=== PATIENT | male | born 1965 | race Asian ===

== ENCOUNTER 2016-12-24 10:44 | Emergency (ER) | payer OTHER ==
[~2016-12-24] VITALS: Ht 167.6 cm; Wt 70.7 kg
[2016-12-24 10:50] VITALS: TEMP 36.5; Ht 167.6 cm; Wt 70.7 kg
[2016-12-24 10:55] VITALS: O2SAT 97
[2016-12-24 11:13] LABS: BASO % 0.6 %; BASO ABS # 0.05 K/uL (0-0.2); COMPLETE YES; EOS % 2.4 %; HEMATOCRIT 47.2 % (42-52); IG% 0.4 %; LYMPH % 31.1 %; LYMPH ABS # 2.49 K/uL (1.2-3.4); MEAN CELL VOLUME 90.9 fL (80-100); MEAN CORPUSCULAR HEMOGLOBIN 29.7 pg (25-34); MEAN CORPUSCULAR HGB CONC 32.6 g/dl (32-36); MEAN PLATELET VOLUME 10.3 fL (7.4-10.4); MONO % 8.9 %; NEUT % 56.6 %; PLATELET COUNT 267 K/uL (130-400); RED BLOOD COUNT 5.19 M/uL (4.7-6.1)
--- NOTE | 2016-12-24 11:27 | DIAGNOSTIC IMAGING REPORT ---
CHEST ONE VIEW PORTABLE CLINICAL HISTORY: CHEST PAIN dyspnea COMPARISON STUDY: No previous studies for comparison. FINDINGS: Lungs are clear. Diaphragms smooth. Apical pleural thickening on the right and to lesser extent left. This may be chronic. IMPRESSION: 1. No acute process the chest. 2. Apical pleural thickening, possibly associated with minimal pleural nodularity right apex. Correlation with old films is initially suggested. If this is not possible, a repeat study is recommended in 4-6 months. Electronically signed by: Bernard Jefferson M.D. 12/24/2016 11:26 AM Dictated Date/Time: 12/24/2016 11:25 AM
[2016-12-24 11:31] LABS: BUN/CREATININE RATIO 12.4 (10-20); CALCIUM 8.8 mg/dl (8.5-10.1); CREATININE 0.89 mg/dl (0.60-1.40); POTASSIUM 4.3 mmol/L (3.5-5.1)
[2016-12-24 11:36] LABS: CKMB/CK RATIO 0.7 (0-3.0)
[2016-12-24] MEDS ORDERED: ASPIRIN 81 MG CHEW PO STA (12:21)
[2016-12-24] MEDS ORDERED: GI COCKTAIL PO STA (12:21)
[2016-12-24] MEDS ORDERED: ALUMINUM/MAGNESIUM SUSP 30 ML UDC ONE (12:51)
[2016-12-24] MEDS ORDERED: LIDOCAINE HCL 2% VISC SOLN 20 ML UDC ONE (12:52)
[2016-12-24 16:51] VITALS: BP 130/84; PULSE 65; O2SAT 99
[2016-12-24] MEDS ORDERED: OMEP40CA41 PO (17:39)
--- NOTE | 2016-12-24 18:04 | EXERCISE STRESS ECHO ---
*NOTICE TO RECEIVING CONSTITUTION PARTY AGENCY This information is strictly Confidential and protected under [place] law. [place] law prohibits you from making any further disclosure of this information unless further disclosure is expressly permitted by the written consent of the person to whom it pertains or is authorized by law. A general authorization for the release of medical or other information is not sufficient for this purpose. Hospital accepts no responsibility if the information is made available to any other person, INCLUDING THE PATIENT. Interpretation Summary * Name: JUAN CARLOS JORGE Study Date: 12/24/2016 02:33 PM BP: 143/82 mmHg * Patient Location: [facility] HR: 49 * : 1965 (M/d/yyyy) Gender: Male Height: 66 in * Age: 51 yrs Ethnicity: Weight: 155 lb * Ordering Physician: Roe Molina * Referring Physician: Self, Referred * Performed By: Lilliam Correa RCS * * Reason For Study: CHEST PAIN * BSA: 1.8 m2 * -- Conclusions -- * 1. Negative exercise stress echo for ischemia at 93% MPHR. * 2. Exercise ECG with 0.[address] depressions in inferior leads. * 3. Below average functional capacity (first time on a treadmill was challenging for patient). Exercised 3:11, achieving 4.8 METS. * 4. No exercise induced chest pain. Normal hemodynamic response to exercise. Procedure Details * ECHOEX, CPT #38396 Left Ventricular Findings with Stress * This was essentially a normal study. Left Ventricle * The left ventricle is grossly normal size. * There is normal left ventricular wall thickness. * Ejection Fraction = 55-60%. * No regional wall motion abnormalities noted. Right Ventricle * The right ventricle is grossly normal size. * The right ventricular systolic function is qualitatively normal. Mitral Valve * The mitral valve is grossly normal. * Mitral stenosis is absent. Tricuspid Valve * The tricuspid valve is not well visualized. Aortic Valve * The aortic valve opens well. * No hemodynamically significant valvular aortic stenosis. Pulmonic Valve * The pulmonic valve is not well visualized. Great Vessels * The aortic root is normal size. Pericardium * There is no pericardial effusion. Stress Parameters * Sinus bradycardia * There was a maximum .[address] segment depression in the inferior lead(s). * The stress portion of this study was personally supervised by the undersigned interpreting physician. * Rest heart rate was '49' BPM. * Rest blood pressure was '143/82' * Maximum heart rate achieved was 157 bpm. * Maximum heart rate was 93 % of maximum age-predicted heart rate. * Maximum blood pressure was '172/57' * Total exercise time was '03:11' * Maximum exercise MET level achieved was '4.80' METS * Maximum treadmill speed was '2.50' miles per hour. * Maximum treadmill elevation was '12.00'% grade. Left Ventricular Findings with Stress * The study was technically good with many images being of high quality. MMode 2D Measurements and Calculations IVSd 1.2 cm IVSs 1.5 cm LVIDd 4.0 cm LVIDs 2.9 cm LVPWd 0.98 cm LVPWs 1.3 cm IVS/LVPW 1.2 FS 27.7 % EDV(Teich) 69.3 ml ESV(Teich) 31.7 ml EF(Teich) 54.3 % EDV(cubed) 63.2 ml ESV(cubed) 23.9 ml EF(cubed) 62.2 % % IVS thick 26.2 % % LVPW thick 30.4 % LV mass(C)d 138.4 grams LV mass(C)dI 77.1 grams/m\S\2 LV mass(C)s 127.9 grams LV mass(C)sI 71.2 grams/m\S\2 SV(Teich) 37.6 ml SI(Teich) 21.0 ml/m\S\2 SV(cubed) 39.3 ml SI(cubed) 21.9 ml/m\S\2 Ao root diam 3.8 cm Ao root area 11.2 cm\S\2 LA dimension 2.8 cm LA/Ao 0.74 LVOT diam 2.0 cm LVOT area 3.1 cm\S\2
--- NOTE | 2016-12-24 18:57 | EMERGENCY ROOM VISIT NOTE ---
History Report prepared by Elzbieta: Fawad Freitas Under the Supervision of: Dr. Roe Mloina M.D. First contact with patient: 11:05 Chief Complaint: CHEST PAIN Stated Complaint: CHEST PAIN Nursing Triage Summary: Pt presents with pain "in heart" and back, difficulty breathing since Mon. History of Present Illness The patient is a 51 year old male who presents to the Emergency Room with complaints of constant chest pain that the patient first experienced three days ago. The patient claims that his pain also radiates into his left black. He describes the pain as being "deep inside" his left chest, and notes that it is worsened with deep inspiration. He rates the pain in his left back as an 8/10 in severity, and his pain with deep inspiration in his left chest as an 8/10 as well. The patient is a smoker and has high cholesterol. He denies any recent cough, long travel, shortness of breath, or family history of cardiac illness. He does not take any medications daily. He also denies LOC, headache, fevers, chills, diaphoresis, visual changes, neck pain, personal history or family history of aneurysm or pulmonary embolism, uncontrolled hypertension, leg swelling, coagulation abnormalities, recent surgery or immobilization, nausea, vomiting, abdominal pain, melena, hematochezia, urinary symptoms, numbness, weakness, lymphadenopathy, rash, or other complaints. Source of History: patient Onset: 3 days VIDEO GAME TESTER Position: chest (left) Timing: constant Modifying Factors (Worsening): other (Deep inspiration) Associated Symptoms: + back pain (Left upper back), No SOB, No cough Review of Systems See HPI for pertinent positives and negatives. A total of ten systems were reviewed and were otherwise negative. Past Medical & Surgical Medical Problems: (1) High cholesterol High cholesterol Family History No pertinent family histories discussed. Social History Smoking Status: Current Every Day Smoker Marital Status: Housing Status: lives with family Occupation Status: employed Current/Historical Medications Scheduled Omeprazole (Prilosec), 40 MG PO DAILY Allergies Coded Allergies: No Known Allergies (Unverified , 12/24/16) Physical Exam Vital Signs Date Time Temp Pulse Resp B/P Pulse Ox O2 Delivery O2 Flow Rate FiO2 12/24/16 16:51 65 16 130/84 99 Room Air 12/24/16 15:10 86 16 120/83 96 Room Air 12/24/16 13:18 53 12/24/16 13:02 55 16 148/86 98 Room Air 12/24/16 12:06 58 16 129/92 99 Room Air 12/24/16 11:02 59 12/24/16 10:55 97 Room Air 12/24/16 10:50 36.5 63 18 157/82 99 Room Air Physical Exam GENERAL: Awake, alert, well-appearing, in no distress HENT: Normocephalic, atraumatic. Oropharynx unremarkable. EYES: Normal conjunctiva. Sclera non-icteric. NECK: Supple. No nuchal rigidity. FROM. No JVD. RESPIRATORY: Clear to auscultation. CARDIAC: Regular rate, normal rhythm. Extremities warm and well perfused. Pulses equal. ABDOMEN: Soft, non-distended. No tenderness to palpation. No rebound or guarding. No masses. RECTAL: Deferred. MUSCULOSKELETAL: Chest examination reveals no tenderness. The back is symmetrical on inspection without obvious abnormality. There is no CVA tenderness to palpation. No joint edema. LOWER EXTREMITIES: Calves are equal size bilaterally and non-tender. No edema. No discoloration. NEURO: Normal sensorium. No sensory or motor deficits noted. SKIN: No rash or jaundice noted. Medical Decision & Procedures ER Provider Diagnostic Interpretation: Radiology results as stated below per my review and radiologist interpretation: CHEST ONE VIEW PORTABLE CLINICAL HISTORY: CHEST PAIN dyspnea COMPARISON STUDY: No previous studies for comparison. FINDINGS: Lungs are clear. Diaphragms smooth. Apical pleural thickening on the right and to lesser extent left. This may be chronic. IMPRESSION: 1. No acute process the chest. 2. Apical pleural thickening, possibly associated with minimal pleural nodularity right apex. Correlation with old films is initially suggested. If this is not possible, a repeat study is recommended in 4-6 months. Electronically signed by: Bernard Jefferson M.D. 12/24/2016 11:26 AM Dictated Date/Time: 12/24/2016 11:25 AM Laboratory Results 12/24/16 11:05 Red Blood Count 5.19, Mean Corpuscular Volume 90.9, Mean Corpuscular Hemoglobin 29.7, Mean Corpuscular Hemoglobin Concent 32.6, Mean Platelet Volume 10.3, Neutrophils (%) (Auto) 56.6, Lymphocytes (%) (Auto) 31.1, Monocytes (%) (Auto) 8.9, Eosinophils (%) (Auto) 2.4, Basophils (%) (Auto) 0.6, Neutrophils # (Auto) 4.53, Lymphocytes # (Auto) 2.49, Monocytes # (Auto) 0.71, Eosinophils # (Auto) 0.19, Basophils # (Auto) 0.05 12/24/16 11:05 Test 12/24/16 11:05 12/24/16 11:18 White Blood Count 8.00 K/uL (4.8-10.8) Red Blood Count 5.19 M/uL (4.7-6.1) Hemoglobin 15.4 g/dL (14.0-18.0) Hematocrit 47.2 % (42-52) Mean Corpuscular Volume 90.9 fL (80-100) Mean Corpuscular Hemoglobin 29.7 pg (25-34) Mean Corpuscular Hemoglobin Concent 32.6 g/dl (32-36) Platelet Count 267 K/uL (130-400) Mean Platelet Volume 10.3 fL (7.4-10.4) Neutrophils (%) (Auto) 56.6 % Lymphocytes (%) (Auto) 31.1 % Monocytes (%) (Auto) 8.9 % Eosinophils (%) (Auto) 2.4 % Basophils (%) (Auto) 0.6 % Neutrophils # (Auto) 4.53 K/uL (1.4-6.5) Lymphocytes # (Auto) 2.49 K/uL (1.2-3.4) Monocytes # (Auto) 0.71 K/uL (0.11-0.59) Eosinophils # (Auto) 0.19 K/uL (0-0.5) Basophils # (Auto) 0.05 K/uL (0-0.2) RDW Standard Deviation 44.2 fL (36.4-46.3) RDW Coefficient of Variation 13.4 % (11.5-14.5) Immature Granulocyte % (Auto) 0.4 % Immature Granulocyte # (Auto) 0.03 K/uL (0.00-0.02) Anion Gap 4.0 mmol/L (3-11) Est Creatinine Clear Calc Drug Dose 87.6 ml/min Estimated GFR () 113.9 Estimated GFR (Non- 98.3 BUN/Creatinine Ratio 12.4 (10-20) Calcium Level 8.8 mg/dl (8.5-10.1) Total Bilirubin 0.4 mg/dl (0.2-1) Direct Bilirubin 0.1 mg/dl (0-0.2) Aspartate Amino Transf (AST/SGOT) 17 U/L (15-37) Alanine Aminotransferase (ALT/SGPT) 43 U/L (12-78) Alkaline Phosphatase 53 U/L (45-117) Total Creatine Kinase 143 U/L (39-308) Creatine Kinase MB 1.0 ng/ml (0.5-3.6) Creatine Kinase MB Ratio 0.7 (0-3.0) Total Protein 7.5 gm/dl (6.4-8.2) Albumin 3.9 gm/dl (3.4-5.0) Lipase 154 U/L (73-393) Bedside D-Dimer 178 ng/mlFEU (0-450) Bedside Troponin I 0.000 ng/ml (0-0.045) Laboratory results reviewed by me Medications Administered Medications (Trade) Dose Ordered Sig/Humphrey Route Start Time Stop Time Status Last Admin Dose Admin Aspirin (Aspirin Chew) 324 mg NOW STAT PO 12/24/16 12:21 12/24/16 12:22 DC 12/24/16 13:00 324 MG Al Hydroxide/Mg Hydroxide (Maalox Susp) 30 ml STK-MED ONCE .ROUTE 12/24/16 12:51 12/24/16 12:52 DC 12/24/16 13:00 30 ML Lidocaine HCl (Viscous Lidocaine 2% Soln) 20 ml STK-MED ONCE .ROUTE 12/24/16 12:52 12/24/16 12:53 DC 12/24/16 13:00 10 ML ECG Indication: chest pain Rate (beats per minute): 58 Rhythm: sinus bradycardia Findings: no acute ischemic change, no ectopy Comparison ECG Date: no prior available ED Course 1110: The patient was evaluated in room A3. A complete history and physical exam was performed. 1207: I checked on the patient at this time. He feels the same. There is constant pain still. I will consult cardiology. 1218: I discussed the case with Dr. Faviola [facility] at this time. 1221: Ordered GI Cocktail 24 mL PO, Aspiring 324 mg PO. 1251: Ordered Maalox 30 mL, Lidocaine HCl 20 mL 1728: I reevaluated the patient at this time. He is doing well. 1741: I reevaluated the patient. Discussed results and discharge instructions: he verbalized understanding and agreement. The patient is ready for discharge. Medical Decision Triage Nursing notes reviewed. The patient's presentation and history were concerning for chest pain. Etiologies such as cardiac ischemia, aortic dissection, pulmonary embolism, pneumonia, pneumothorax, musculoskeletal, infections, gastrointestinal, as well as others were entertained. the patient was evaluated. ECG was nonischemic. Chest x-ray did not reveal any acute findings. Radiology suggests some apical capping bilaterally which appeared chronic. The patient was given aspirin and GI cocktail. Blood work was unremarkable. Troponin and d-dimer were negative. The patient is low risk by Wells criteria and is perc negative. Consultation was made with cardiology for stress testing. The patient had resolution of pain after GI cocktail. The patient underwent stress testing and this was negative per Dr. Guillaume cardiology. The patient was reassessed. He was doing well. I discussed conservative management with him. I did inform him of the chest x-ray and need for follow-up imaging. He will follow-up with his primary doctor for this. I did provide a prescription for Prilosec as the patient had good resolution with the GI cocktail. I gave my usual and customary discussion regarding this issue. By the evaluation outlined above other emergent etiologies such as those listed in the differential, as well as others, were deemed relatively unlikely. The patient and were informed about the findings as listed above. All questions were answered and they were pleased with the treatment. Return instructions were outlined and the patient was discharged in stable condition. The patient was referred to his PCP for follow-up next week for a recheck of the current condition. The chart was completed utilizing [employer] Speech voice recognition software. Grammatical errors, random word insertions, pronoun errors, and incomplete sentences are an occasional consequence of this system due to software limitations, ambient noise, and hardware issues. Any formal questions or concerns about the content, text, or information contained within the body of this dictation should be directly addressed to the physician for clarification. Consults Time Called: 1213 Consulting Physician: Dr. Faviola [facility] Returned Call: 1218 I discussed the case with Dr. Kopinski - [facility] at this time. Impression Primary Impression: Substernal chest pain Scribe Attestation The scribe's documentation has been prepared under my direction and personally reviewed by me in its entirety. I confirm that the note above accurately reflects all work, treatment, procedures, and medical decision making performed by me. Departure Information Dispostion Home / Self-Care Prescriptions Omeprazole (PRILOSEC) 40 Mg Cap 40 MG PO DAILY, #20 CAP Prov: Roe Molina MD 12/24/16 Referrals No Doctor, Assigned (PCP) Forms HOME CARE DOCUMENTATION FORM, IMPORTANT VISIT INFORMATION Patient Instructions My [facility] Additional Instructions CHEST PAIN INSTRUCTIONS: Start Prilosec 40 mg once daily 30 minutes before breakfast until directed otherwise by your primary doctor. Acetaminophen(Tylenol) may be used for fever or pain. Use 1000mg every six hours as needed. Avoid using more than 4000mg in a 24 hour period. Rest and drink plenty of fluids as tolerated. Continue current medications. Avoid strenuous activities and anything that worsens your pain. Resume normal activities once your symptoms resolve. Return to the ER immediately for worsening or persistent chest pain, abdominal pain, vomiting, fevers, chest pains, difficulty breathing, worsening of your condition, or as needed. Follow up with your primary physician Wednesday for recheck of your current condition.
== END 2016-12-24 17:48 | disposition home or self-care (01) ==
LOC: C.EDB 10:48 → C.EDA 17:48
DX: R07.2 Precordial pain (principal); F17.210 Nicotine dependence, cigarettes, uncomplicated; E78.00 Pure hypercholesterolemia, unspecified; Z79.899 Other long term (current) drug therapy